=== PATIENT | male | born 1980 | race Hispanic/Latino ===

== ENCOUNTER 2019-11-05 15:00 | Outpatient (RCR) | payer OTHER ==
[~2019-11-05 15:00] MED LIST: ADDERALL 10 MG10 MG; LEVAQUIN500 MG PO
== END 2019-11-09 ==
LOC: PT 15:00
PROVIDERS: ATTEND Specialist
DX: M25.561 Pain in right knee (principal); M25.661 Stiffness of right knee, not elsewhere classified; S83.411D Sprain of medial collateral ligament of right knee, subsequent encounter

== ENCOUNTER 2019-11-19 13:00 | Outpatient (RCR) | payer OTHER | END 2019-12-09 | LOC: PT 13:00 | PROVIDERS: ATTEND Specialist | DX: M25.561 Pain in right knee (principal); S83.411D Sprain of medial collateral ligament of right knee, subsequent encounter | CPT/HCPCS: 97139 ==